=== PATIENT | male | born 1955 | race Caucasian/White ===

== ENCOUNTER → 2016-05-12 | Outpatient (CLI) | payer BC ==
[~2016-05-12] MED LIST: CARVEDILOL12.5 MG PO; CIPRO XR 500 M500 MG PO; COQ-10200 MG PO; COREG12.5 MG PO; CYMBALTA PO; CYMBALTA20 MG; DICLOFENAC PO; FLOMAX0.4 M1 PO; FOLIC ACID1 MG PO; FUROSEMIDE40 MG PO; LORTAB 10-5001 EACH PO; LOSARTAN POTASS50 MG PO; MEDI-MECLIZINE25 M1 PO; MELOXICAM15 MG PO; OMEPRAZOLE40 M1 PO; OMEPRAZOLE40 MG PO; PEN-VEE K PO; REGLAN10 MG PO; TYLENOL PM EX-S1 TA3 PO
--- NOTE | ~2016-05-12 | MR32 ---
[facility] A Service of [facility] & [facility] RADIOLOGY TEXT RESULTS PATIENT: BRITNI MCRAE LOCATION: [facility] : 57 UNIT #: [id number] AGE: [address]: Ladi Anderson MD SEX: M ORDER DR: [id number] [address] [address] [id number] O MR#: [id number] Acc #: [id number] NAME: BRITNI MCRAE : 1955 SEX: M STUDY DATE/TIME: 05/12/2016 8:48 UNIT: [facility] ROOM: STUDY DESCRIPTION: MR Cervical Wo Contrast Attending Physician: Ladi Anderson M.D. Referring Physician: Ladi Anderson M.D. Ordering Physician: Ladi Anderson M.D. Primary Care Physician: Ladi Anderson M.D. MRI CENTER REPORT This report is preliminary unless electronic signature is present. EXAM MRI of the cervical spine without contrast dated 05/12/2016. COMPARISON MRI cervical spine from [facility] dated 03/15/2013. HISTORY Increasing neck pain with left upper extremity numbness and weakness. It is worse in the last 10 days. History of bladder cancer which has been surgically treated. FINDINGS Multisequence multiplanar imaging of the cervical spine was obtained without contrast. Disc osteophyte complex are at multiple levels. There are fatty endplate changes at multiple levels particularly at C5-6. Cord demonstrates normal course, caliber and signal. Pre and paravertebral soft tissues do not demonstrate any significant abnormality. There is minimal left mastoid tip mucosal thickening. C2-3: Disc bulge with moderate bilateral facet changes. No neural foraminal narrowing. Borderline size to mild canal stenosis. C3-4: Disc bulge with mild right and moderate left facet hypertrophic change. Borderline-sized canal. No significant neural foraminal narrowing. Stable. C4-5: Disc osteophyte complex with vcahxruq-rs-kpzxzo canal stenosis. Previously noted central protrusion is now not seen. Severe left facet hypertrophic changes noted which is worse since previous study. There is superior left severe neural foraminal narrowing but the inferior aspect is widely patent. C5-6: Disc osteophyte complex with bilateral uncinate spurs, superior STS. [facility] A Service of [facility] RADIOLOGY TEXT RESULTS PATIENT: BRITNI MCRAE LOCATION: [facility] : 57 UNIT #: [id number] AGE: [address]: Ladi Anderson MD SEX: M ORDER DR: [id number] bilateral neural foraminal narrowing with relatively patent inferior aspects. Hfizpkej-mo-xbgbrx canal stenosis is noted. Stable to slightly worse. C6-7: Disc osteophyte complex with bilateral uncinate spurs, inferior bilateral neural foraminal narrowing, mild right and inof-px-rjfcmimz left facet hypertrophic change. Skeverpv-zj-ntpksk canal stenosis. Relatively stable. C7-T1: Disc bulge with severe bilateral facet hypertrophic change. There is a transverse fidw-nw-jhrbdcle canal stenosis without any significant neural foraminal narrowing. C7-T1: Mild disc bulge with a moderate to severe bilateral facet hypertrophic change and mild to moderate transverse canal stenosis. No significant neural foraminal narrowing. Mild worsening in the facet changes and associated canal stenosis when compared to prior study. IMPRESSION 1. Interval mild worsening is noted at multiple levels as described above involving the facet changes predominantly with some worsening in disc disease at some of the levels. 2. Cord is flattened at the level of C5-6 and due to the xwlzuidt-lj-fmjrqv canal stenosis noted at this level but there is no direct cord impingement or cord signal change yet. Dictated by... Perez Snider M.D. THIS IS AN ELECTRONICALLY VERIFIED REPORT Perez Snider M.D. at 05/14/2016 8:53 AM CPR/rnr TD: 05/13/2016 13:53 JOB #: [id number] MRI CENTER REPORT Page 1 of 1
== END | disposition home or self-care (01) ==
LOC: SMRI 08:10
DX: M54.12 Radiculopathy, cervical region (principal); M50.10 Cervical disc disorder with radiculopathy, unspecified cervical region; M48.02 Spinal stenosis, cervical region
CPT/HCPCS: 72141

== ENCOUNTER → 2016-08-14 | Outpatient (CLI) | payer BC ==
--- NOTE | ~2016-08-14 | MR164 ---
[facility] A Service of [facility] & [facility] RADIOLOGY TEXT RESULTS PATIENT: BRITNI MCRAE LOCATION: [facility] : 57 UNIT #: [id number] AGE: [address]: Ladi Anderson MD SEX: M ORDER DR: [id number] [address] [address] [id number] O MR#: [id number] Acc #: [id number] NAME: BRITNI MCRAE : 1955 SEX: M STUDY DATE/TIME: 08/14/2016 11:56 UNIT: [facility] ROOM: STUDY DESCRIPTION: MR Shoulder Wo Contrast Lt Attending Physician: Ladi Anedrson M.D. Referring Physician: Ladi Anderson M.D. Ordering Physician: Ladi Anderson M.D. Primary Care Physician: Ladi Anderson M.D. MRI CENTER REPORT This report is preliminary unless electronic signature is present. EXAM MRI of the left shoulder without contrast HISTORY 61-year-old male complains of increasing left shoulder pain, decreased strength. Symptoms for 3-4 months. Clinical concern for rotator cuff tear. FINDINGS Multiplanar, multiecho imaging was performed of the left shoulder utilizing a high field magnet and dedicated protocol. There is mild AC joint arthropathy with predominantly superiorly directed osteophyte and capsular hypertrophy and a small inferiorly directed distal clavicular osteophyte. Periarticular edema suggests some active inflammation. Enthesopathic cystic change is noted along the greater tuberosity. Joint fluid within normal limits. Full thickness tear distal insertion of supraspinatus tendon measuring 1.6 cm AP x 1.8 cm medial to lateral dimension. This appears superimposed on chronic tendinopathy. Mild infraspinatus tendinopathy. Teres minor and subscapularis tendons appear intact. No muscle atrophy. There is very subtle muscle edema throughout the infraspinatus muscle. This appears distinct from the adjacent musculature and does raise the concern for acute or subacute denervation change or less likely myositis. There may be minimal edema within the supraspinatus muscle. No lesion is identified to contribute to compression neuropathy. There is abnormal signal superior labrum posterior to the biceps anchor suggesting a small type 2 SLAP tear. Biceps anchor and long tendon of the biceps appears intact. Anterior and posterior labrum are unremarkable. Deltoid and extraarticular soft tissues unremarkable. IMPRESSION STS. [facility] A Service of [facility] & [facility] RADIOLOGY TEXT RESULTS PATIENT: BRITNI MCRAE LOCATION: [facility] : 57 UNIT #: [id number] AGE: [address]: Ladi Anderson MD SEX: M ORDER DR: 1. 1.6 x 1.8 cm full thickness tear distal insertion supraspinatus tendon. 2. Mild AC joint arthropathy with periarticular inflammation. 3. Probable small type 2 SLAP tear. No evidence of paralabral cyst. 4. Subtle edema within the infraspinatus and possibly within the supraspinatus muscle which could indicate acute or subacute denervation change. Potentially this could just be artifactual but does appear distinct from the adjacent musculature. This could represent a manifestation of Parson[place]-Triplett syndrome and be post-traumatic or post viral in nature. No significant muscle atrophy identified. Dictated by... Kyung Desai M.D. THIS IS AN ELECTRONICALLY VERIFIED REPORT Kyung Desai M.D. at 08/19/2016 9:27 AM Julia TD: 08/15/2016 09:51 JOB #: [id number] MRI CENTER REPORT Page 1 of 1
== END | disposition home or self-care (01) ==
LOC: SMRI 10:51
DX: M75.122 Complete rotator cuff tear or rupture of left shoulder, not specified as traumatic (principal); M19.012 Primary osteoarthritis, left shoulder; R60.0 Localized edema
CPT/HCPCS: 73221